=== PATIENT | female | born 1965 | race American Indian/Alaskan Native ===

== ENCOUNTER 2021-04-01 06:32 | Emergency (ER) | payer BC ==
[2021-04-01 06:51] VITALS: BP 148/78
--- NOTE | 2021-04-01 06:51 | Emergency Department Report ---
Chief Complaint: Chest Pain Stated Complaint: NAUSEA/BURNING URINATION/CHEST PAIN Time Seen by Provider: 04/01/21 06:45 - HPI History of Present Illness: Patient presents with a constellation of symptoms including chest pain, palpitations, shortness of breath, dysuria, and generalized malaise. Symptoms started last night primarily with urinary symptoms. The palpitations started last night. She [place] the airport and had worsening symptoms and decided to come here. There is no history of coronary artery disease. - Exam Physical Exam: Well-developed, well-nourished female in no distress. Heart is regular rate. Lungs are clear. MSE screening note: Focused history and physical exam performed. Due to findings the following was ordered: ED Disposition for MSE Condition: Stable
[2021-04-01] MEDS ORDERED: ONDANSETRON 4 MG/2 ML INJ IM ONE (07:13)
--- NOTE | 2021-04-01 07:18 | Emergency Department Report ---
ED General Adult HPI - General Chief complaint: Chest Pain Stated complaint: NAUSEA/BURNING URINATION/CHEST PAIN Time Seen by Provider: 04/01/21 06:45 Source: patient Mode of arrival: Ambulatory Limitations: No Limitations - History of Present Illness Initial comments: Patient is 56 years old female with no significant past medical history, presented to the ER complaining of chest pain, palpitation and nausea for the last few days. Patient stated that she was heading to the airport for business trip and has to come to the ER because of the symptoms. Patient stated that she started to have urinary symptoms including urgency and frequency and incon tinence for the last few days. She stated that she took a leftover amoxicillin but she is not feeling any better. Patient denied any fever or chills. Patient denied any abdominal pain. No shortness of breath or cough. - Related Data Previous Rx's Medication Instructions Recorded Last Taken Type Nitrofurantoin Thomas/M-Cryst 100 mg PO Q12HR #14 capsule 04/01/21 Unknown Rx [Macrobid CAP] Ondansetron [Zofran Odt] 4 mg PO Q8HR PRN #14 tab.rapdis 04/01/21 Unknown Rx Allergies Allergy/AdvReac Type Severity Reaction Status Date / Time Latex, Natural Rubber AdvReac Rash Verified 04/01/21 06:52 Sulfa (Sulfonamide AdvReac Hives Verified 04/01/21 06:51 Antibiotics) ED Review of Systems ROS: Stated complaint: NAUSEA/BURNING URINATION/CHEST PAIN Other details as noted in HPI Comment: All other systems reviewed and negative Constitutional: denies: chills, fever Respiratory: denies: cough, orthopnea, shortness of breath, SOB with exertion, SOB at rest Cardiovascular: chest pain, palpitations Gastrointestinal: nausea. denies: abdominal pain, vomiting, diarrhea, constipation, hematemesis, melena, hematochezia Genitourinary: denies: urgency Musculoskeletal: denies: back pain Neurological: denies: headache Psychiatric: denies: depression, auditory hallucinations ED Past Medical Hx - Past Medical History Previous Medical History?: Yes Additional medical history: hernias - Surgical History Past Surgical History?: Yes Hx Appendectomy: Yes Additional Surgical History: hernia repair x 2, 2 c-sections, partial hysterectomy - Social History Smoking Status: Never Smoker Substance Use Type: None - Medications Home Medications: Home Medications Medication Instructions Recorded Confirmed Last Taken Type Nitrofurantoin Thomas/M-Cryst 100 mg PO Q12HR #14 capsule 04/01/21 Unknown Rx [Macrobid CAP] Ondansetron [Zofran Odt] 4 mg PO Q8HR PRN #14 tab.rapdis 04/01/21 Unknown Rx ED Physical Exam - General Limitations: No Limitations General appearance: alert, in no apparent distress - Head Head exam: Present: atraumatic, normocephalic, normal inspection - Eye Eye exam: Present: normal appearance, PERRL - ENT ENT exam: Present: normal exam, normal orophraynx, mucous membranes moist - Neck Neck exam: Present: normal inspection, full ROM. Absent: tenderness, meningismus - Respiratory Respiratory exam: Present: normal lung sounds bilaterally - Cardiovascular Cardiovascular Exam: Present: regular rate, normal rhythm, normal heart sounds - GI/Abdominal GI/Abdominal exam: Present: soft, normal bowel sounds. Absent: distended, tenderness, guarding, rebound, rigid, organomegaly, mass, bruit, pulsatile mass, hernia - Extremities Exam Extremities exam: Present: normal inspection, full ROM, normal capillary refill. Absent: tenderness, pedal edema, joint swelling, calf tenderness - Back Exam Back exam: Present: normal inspection, full ROM. Absent: CVA tenderness (R), CVA tenderness (L), muscle spasm, paraspinal tenderness, vertebral tenderness - Neurological Exam Neurological exam: Present: alert, oriented X3, CN II-XII intact, normal gait, reflexes normal. Absent: motor sensory deficit - Psychiatric Psychiatric exam: Present: normal mood - Skin Skin exam: Present: warm, intact, normal color ED Course Vital Signs 04/01/21 06:49 Temperature 97.8 F Pulse Rate 61 Respiratory 18 Rate Blood Pressure 148/78 O2 Sat by Pulse 98 Oximetry ED Medical Decision Making - Lab Data Result diagrams: 04/01/21 07:12 04/01/21 07:12 - EKG Data -: EKG Interpreted by Wy EKG shows normal: sinus rhythm Rate: normal - EKG Data Interpretation: no acute changes - Medical Decision Making Patient is 56 years old female with no significant past medical history, presented to the ER complaining of chest pain, palpitation and nausea for the last few days. Patient stated that she was heading to the airport for business trip and has to come to the ER because of the symptoms. Patient stated that she started to have urinary symptoms including urgency and frequency and incontinen ce for the last few days. She stated that she took a leftover amoxicillin but she is not feeling any better. Patient denied any fever or chills. Patient denied any abdominal pain. No shortness of breath or cough. EKG is unremarkable. Patient remained stable with stable vital signs. Labs reviewed and showed significant UTI. Patient given Zofran 4 mg IM and also given prescription for Macrobid and Zofran. Critical care attestation.: If time is entered above; I have spent that time in minutes in the direct care of this critically ill patient, excluding procedure time. ED Disposition Clinical Impression: Acute chest pain, Palpitation, UTI (urinary tract infection), Nausea Disposition: 01 HOME / SELF CARE / HOMELESS Is pt being admited?: No Condition: Stable Instructions: Chest Pain (ED), Urinary Tract Infection, Adult, Nausea and Vomiting, Adult, Nonspecific Chest Pain, Adult, [id number] Prescriptions: Nitrofurantoin Thomas/M-Cryst [Macrobid CAP] 100 mg PO Q12HR #14 capsule Ondansetron [Zofran Odt] 4 mg PO Q8HR PRN #14 tab.rapdis PRN Reason: Nausea And Vomiting Referrals: PRIMARY CARE, [Referring] - 3-5 Days
[2021-04-01 07:20] LABS: Bacteria,Urine 1+ /HPF (Negative); Bilirubin,Urine NEG (Negative); Blood,Urine MOD (Negative); Color,Urine Amber (Yellow); Mucus,Urine FEW /HPF
[2021-04-01 07:22] LABS: Protein,Urine >500 mg/dL (Negative); RBC,Urine > 182.0 /HPF (0.0-6.0); WBC,Urine > 182.0 /HPF (0.0-6.0)
[2021-04-01 07:24] LABS: Basophils # (Auto) 0.1 K/mm3 (0.0-0.1); Basophils % (Auto) 0.8 % (0.0-1.8); Eosinophils # (Auto) 0.1 K/mm3 (0.0-0.4); Eosinophils % (Auto) 0.8 % (0.0-4.3); Hematocrit 42.8 % (30.3-42.9); Hemoglobin 14.4 gm/dl (10.1-14.3); Lymphocytes # (Auto) 2.7 K/mm3 (1.2-5.4); Mean Corpuscular HGB Conc 34 % (30-34); Mean Corpuscular Volume 90 fl (79-97); Monocytes # (Auto) 0.6 K/mm3 (0.0-0.8); Monocytes % (Auto) 6.7 % (0.0-7.3); Platelet Count 248 K/mm3 (140-440); Red Blood Count 4.79 M/mm3 (3.65-5.03); Red Cell Distribution Width 13.2 % (13.2-15.2)
[2021-04-01 07:42] LABS: BUN/Creatinine Ratio 20; Blood Urea Nitrogen 18 mg/dL (7-17); Calcium 9.4 mg/dL (8.4-10.2); Hemolysis Index 5
[2021-04-01] MEDS ORDERED: cefTRIAXone/NS 1 GM/50 ML 1 GM/50 ML BAG IV ONE (07:57)
[2021-04-01] MEDS ORDERED: SODIUM CHLORIDE 0.9% 1000 ML 1,000 ML IV ONE (07:57)
--- NOTE | 2021-04-01 08:15 | XRay Report ---
CHEST 2 VIEWS INDICATION: pain. COMPARISON: None FINDINGS: Support devices: None. Heart: Within normal limits. Lungs/pleura: No acute air space or interstitial disease. No pneumothorax. Additional findings: None. IMPRESSION: No acute findings. Signer Name: Helder Hanley Jr, MD Signed: 04/01/2021 8:11 AM Workstation Name: [id number]
--- NOTE | 2021-04-08 14:20 | Electrocardiograph Report ---
[facility] Test Date: 2021-04-01 Test Time: 06:41:48 Pat Name: CATHLEEN LORA Department: Room: Gender: F [employer]: : 1965 Requested By: QING MELENDREZ Order Number: [id number] Reading MD: Alejandro Arellano Measurements Intervals Wake Rate: 66 P: 60 OR: 181 QRS: 69 QRSD: 86 T: 68 QT: 400 QTc: 419 Interpretive Statements Sinus rhythm Poor R wave progression No previous ECG available for comparison Electronically Signed On 04-08-2021 14:19:39 EDT by Alejandro Arellano
== END 2021-04-01 09:47 | disposition home or self-care (01) ==
LOC: ED 06:32
DX: N39.0 Urinary tract infection, site not specified (principal); R07.9 Chest pain, unspecified; R00.2 Palpitations; R11.0 Nausea; K46.9 Unspecified abdominal hernia without obstruction or gangrene; Z90.89 Acquired absence of other organs; Z90.711 Acquired absence of uterus with remaining cervical stump; Z98.890 Other specified postprocedural states; Z88.2 Allergy status to sulfonamides; Z91.040 Latex allergy status
CPT/HCPCS: 36415; 71046; 80048; 81001; 84484; 85025; 93005; 96361; 96365; 96372; 99284; J0696; J2405; J7030